=== PATIENT | male | born 1990 | race Caucasian/White ===

== ENCOUNTER 2025-09-13 18:37 | Day surgery (SDC) | payer OTHER, SELFPAY ==
[2025-09-13 19:10] VITALS: BP 142/88; PULSE 70; RESP 20; TEMP 36.7; O2SAT 99
[2025-09-13 20:55] VITALS: BP 118/99; PULSE 81; RESP 14; O2SAT 100
--- NOTE | 2025-09-13 21:01 | ED_ITS ---
HPI - General Adult General Chief complaint: Recheck/Abnormal Lab/Rx Stated complaint: cant swallow Time Seen by Provider: 09/13/25 20:51 History of Present Illness HPI narrative: Patient 35-year-old gentleman presents emergency department with chief complaint of food impaction. Patient reports that around 10 01 today he was eating some any corn dog thought that he chewed up but then it felt as though it was getting stuck in his throat the patient states that he is spitting up his saliva reports that he has been unable to swallow since then patient reports that he had episodes similar to this many years ago where he had a pill stuck in his throat Related Data Allergies Allergy/AdvReac Type Severity Reaction Status Date / Time No Known Allergies Allergy Verified 09/13/25 19:09 Review of Systems 2 Review of Systems: A 10 system review of systems was completed on the patient and is negative except for what is stated in the HPI. Nursing and ancillary documentation was reviewed. Exam 2 Narrative: GENERAL: Well-appearing, well-nourished, and in no acute distress. HEAD: Normocephalic, atraumatic. EYES: PERRLA and EOMI. ENT: Nares clear, no rhinorrhea or epistaxis. Mucous membranes moist. NECK: Supple. CHEST: Clear to auscultation. No respiratory distress. HEART: Regular rate and rhythm. No murmur heard. Normal peripheral pulses. ABDOMEN: Soft, nontender, nondistended, normal active bowel sounds. EXTREMITIES: Normal range of motion. No edema. SKIN: Warm, dry, no rash. NEURO: No focal deficits. Alert and oriented x3. PSYCH: Normal mood and affect. Course Vital Signs Vital signs: Vital Signs Temperature 36.7 C 09/13/25 19:10 Pulse Rate 70 09/13/25 19:10 Respiratory Rate 20 09/13/25 19:10 Blood Pressure 142/88 H 09/13/25 19:10 Pulse Oximetry 99 09/13/25 19:10 Oxygen Delivery Room Air 09/13/25 19:10 Temperature 36.7 C 09/13/25 19:10 Pulse Rate 81 09/13/25 20:55 Respiratory Rate 14 09/13/25 20:55 Blood Pressure 118/99 H 09/13/25 20:55 Pulse Oximetry 100 09/13/25 20:55 Oxygen Delivery Room Air 09/13/25 20:55 MDM MDM Narrative Medical decision making narrative: Patient was treated with glucagon nitroglycerin in the emergency department the patient did feel as impaction might have moved patient was given a trial with a sip of water and spit the water back up the case was discussed with GI Dr. Garay who plans to take the patient to the endoscopy suite Differential Diagnosis Differential Diagnosis: Esophageal food impaction, dysphagia, Lab Data [facility] Lab Attestation statement: I personally reviewed the patient's lab results. 09/13/25 21:25 09/13/25 21:25 Labs: Lab Results 09/13/25 Range/Units 21:25 WBC 12.0 H (4.5-10.0) K/mm3 RBC 5.28 (4.6-6.20) M/mm3 Hgb 16.6 (14.0-18.0) g/dL Hct 45.7 (42.0-52.0) % MCV 86.6 (80-100) fl MCH 31.4 (26-34) pg MCHC 36.3 H (32-36) g/dl RDW 11.9 (11.5-14.5) % Plt Count 221 (150-375) k/mm3 MPV 10.8 H (7.4-10.4) fl Immature Gran % (Auto) 0.6 H (0-0.5) % Neut % (Auto) 69.8 (45.5-73.1) % Lymph % (Auto) 16.0 L (18.3-44.2) % [place] % (Auto) 8.0 (2.6-8.5) % Eos % (Auto) 4.8 H (0-4.4) % Baso % (Auto) 0.8 (0.2-1.2) % Lymph # (Auto) 1.92 (0.9-3.2) K/mm3 [place]s # (Auto) 1.0 H (0.1-0.6) K/mm3 Eos # (Auto) 0.6 H (0-0.3) K/mm3 Baso # (Auto) 0.1 (0.0-0.1) K/mm3 Abs Immat Gran (auto) 0.07 H (0.00-0.031) K/mm3 Absolute Neuts (auto) 8.4 H (1.3-6.7) K/mm3 Absolute Nucleated RBC 0.000 (0.0-0.012) K/mm3 Nucleated RBC % 0.0 (0.0-0.2) % Sodium 136 L (137-145) mmol/L Potassium 3.9 (3.4-5.0) mmol/L Chloride 103 (98-107) mmol/L Carbon Dioxide 25 (22-30) mmol/L Anion Gap 8 (4-12) mmol/L BUN 12 (9-20) mg/dL Creatinine 1.19 (0.7-1.3) mg/dL Estim Creat Clear Calc 92 ml/min Estimated GFR > 60 (59 - ) Glucose 103 (65-110) mg/dL Calcium 9.6 (8.4-10.2) mg/dL Total Bilirubin 1.5 H (0.2-1.3) mg/dL AST 46 (17-59) U/L ALT 78 H (6-50) U/L Alkaline Phosphatase 91 (38-126) U/L Total Protein 8.2 (6.3-8.2) g/dL Albumin 4.9 (3.5-5.1) g/dL Discharge Plan Discharge Clinical Impression: Food impaction of esophagus Patient Disposition: Still a Patient Condition: Stable Patient Language: Trinidadian Follow-up/Referrals: UNKNOWN,DOCTOR [Primary Care Provider]
[2025-09-13] MEDS: GLUCAGON FOR INJ 1 MG VIAL IV PUSH (21:20)
[2025-09-13] MEDS: NITROGLYCERIN SL 0.4 MG TABLET SUBLINGUAL (21:20)
[2025-09-13 21:30] LABS: Hematocrit 45.7 % (42.0-52.0); Hemoglobin 16.6 g/dL (14.0-18.0); Immature Granulocyte Percent A 0.6 % (0-0.5); Lymphocytes Absolute Auto 1.92 K/mm3 (0.9-3.2); Mean Corpuscular HGB Conc 36.3 g/dl (32-36); Mean Corpuscular Hemoglobin 31.4 pg (26-34); Mean Corpuscular Volume 86.6 fl (80-100); Nucleated Red Blood Cells Absolute Auto 0.000 K/mm3 (0.0-0.012); Nucleated Red Blood Cells Perc 0.0 % (0.0-0.2); Platelet Count Result 221 k/mm3 (150-375); Red Blood Count 5.28 M/mm3 (4.6-6.20); White Blood Count 12.0 K/mm3 (4.5-10.0)
[2025-09-13] MEDS: SODIUM CHLORIDE 0.9% IV 1,000 ML 999 ML IV CONT (21:31)
[2025-09-13 21:43] LABS: Alanine Aminotransferase 78 U/L (6-50); Albumin Level 4.9 g/dL (3.5-5.1); Alkaline Phosphatase 91 U/L (38-126); Anion Gap 8 mmol/L (4-12); Aspartate Amino Transferase 46 U/L (17-59); Bilirubin,Total 1.5 mg/dL (0.2-1.3); Blood Urea Nitrogen 12 mg/dL (9-20); Calcium 9.6 mg/dL (8.4-10.2); Carbon Dioxide 25 mmol/L (22-30); Chloride 103 mmol/L (98-107); Estimated CRCL calculation 92 ml/min; Estimated Glomerular Filt Rate > 60; Glucose 103 mg/dL (65-110); Potassium 3.9 mmol/L (3.4-5.0); Sodium 136 mmol/L (137-145); Total Protein 8.2 g/dL (6.3-8.2)
--- OUTSIDE RECORDS SUMMARY | 2025-09-13 22:30 | XMS_ITS | Clinical Summary ---
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
[2025-09-13 22:50] VITALS: BP 137/95; PULSE 82; RESP 18; TEMP 36.3; O2SAT 100
--- NOTE | 2025-09-13 22:50 | WPDANESEPP ---
Anes - Eval Pre Procedure Procedure: Operation Date: 09/13/25 22:30 Proposed Procedures p Esophagogastroduodenoscopy - Mao Matson MD Date/Time: 09/13/25 22:50 Surgeon: Dano Preop Diagnosis: food impaction, dysphagia Pre Op Diagnosis: cant swallow Patient Data Age: 35 Gender: M Height: 1.8 m Weight: 101.7 kg Last Vital Signs Temp 98.1 F 09/13/25 19:10 Pulse 81 09/13/25 20:55 Resp 14 09/13/25 20:55 BP 118/99 H 09/13/25 20:55 Pulse Ox 100 09/13/25 20:55 O2 Del Method Room Air 09/13/25 20:55 Allergies Allergy/AdvReac Type Severity Reaction Status Date / Time No Known Allergies Allergy Verified 09/13/25 22:53 Laboratory Tests 09/13/25 21:25 WBC 12.0 H K/mm3 (4.5-10.0) RBC 5.28 M/mm3 (4.6-6.20) Hgb 16.6 g/dL (14.0-18.0) Hct 45.7 % (42.0-52.0) MCV 86.6 fl (80-100) MCH 31.4 pg (26-34) MCHC 36.3 H g/dl (32-36) RDW 11.9 % (11.5-14.5) Plt Count 221 k/mm3 (150-375) MPV 10.8 H fl (7.4-10.4) Immature Gran % (Auto) 0.6 H % (0-0.5) Neut % (Auto) 69.8 % (45.5-73.1) Lymph % (Auto) 16.0 L % (18.3-44.2) [place] % (Auto) 8.0 % (2.6-8.5) Eos % (Auto) 4.8 H % (0-4.4) Baso % (Auto) 0.8 % (0.2-1.2) Lymph # (Auto) 1.92 K/mm3 (0.9-3.2) [place] # (Auto) 1.0 H K/mm3 (0.1-0.6) Eos # (Auto) 0.6 H K/mm3 (0-0.3) Baso # (Auto) 0.1 K/mm3 (0.0-0.1) Abs Immat Gran (auto) 0.07 H K/mm3 (0.00-0.031) Absolute Neuts (auto) 8.4 H K/mm3 (1.3-6.7) Absolute Nucleated RBC 0.000 K/mm3 (0.0-0.012) Nucleated RBC % 0.0 % (0.0-0.2) Sodium 136 L mmol/L (137-145) Potassium 3.9 mmol/L (3.4-5.0) Chloride 103 mmol/L (98-107) Carbon Dioxide 25 mmol/L (22-30) Anion Gap 8 mmol/L (4-12) BUN 12 mg/dL (9-20) Creatinine 1.19 mg/dL (0.7-1.3) Estim Creat Clear Calc 92 ml/min Estimated GFR > 60 (59 - ) Glucose 103 mg/dL (65-110) Calcium 9.6 mg/dL (8.4-10.2) Total Bilirubin 1.5 H mg/dL (0.2-1.3) AST 46 U/L (17-59) ALT 78 H U/L (6-50) Alkaline Phosphatase 91 U/L (38-126) Total Protein 8.2 g/dL (6.3-8.2) Albumin 4.9 g/dL (3.5-5.1) Patient hx anesthesia problems: none Family hx anesthesia problems: none Results Review: All pre-operative results and documents have been reviewed as part of the pre-operative evaluation. [facility] Past Medical History Medical History (Updated 09/13/25 @ 23:04 by Monique Blancas CRNA) Esophageal obstruction due to food impaction Marijuana smoker 3-4 times weekly Chronic sinusitis Social History Social History (Updated 09/13/25 @ 23:03 by Monique Blancas CRNA) Alcohol intake: current Drinks per week: 15 Alcohol use details: typically beers or rum & coke Substance use: current Substance use type: marijuana Other substance usage details: 3-4 times weekly Last use: 09/12/25 Exam Day of Procedure 09/13/25 22:50 Patient weight: obese (bmi 31) Heart: regular rate and rhythm Lungs: clear to auscultation Airway: Mallampati scale class 1 Neurological: alert and oriented
--- NOTE | 2025-09-13 23:02 | P.HP_ITS ---
H&P: HPI History of Present Illness Date/Time: 09/13/25 23:02 Chief Complaint: Food bolus impaction Narrative: Patient went to the emergency room after eating food and felt his esophagus got obstructed, to the point that he cannot even swallow his own saliva. He endorses occasional low-grade dysphagia with solid foods for the past 2 years, being careful cutting food in small pieces and chewing many times. This is the 1st time the patient has a food bolus. Review of Systems Constitutional: Constitutional: Reports as per HPI and Reports no additional constitutional complaints ENT: Denies neck mass, Denies neck pain and Denies odynophagia Cardiovascular: Cardiovascular: Reports no additional cardiovascular complaints Respiratory: Respiratory: Reports no additional respiratory complaints Gastrointestinal: Gastrointestinal: Reports as per HPI [facility] Past Medical History Medical History (Updated 09/13/25 @ 23:04 by Monique Blancas CRNA) Esophageal obstruction due to food impaction Marijuana smoker 3-4 times weekly Chronic sinusitis Social History Social History Alcohol intake: current Drinks per week: 15 Alcohol use details: typically beers or rum & coke Substance use: current Substance use type: marijuana Other substance usage details: 3-4 times weekly Last use: 09/12/25 Meds Home Medications and Allergies Allergies Allergy/AdvReac Type Severity Reaction Status Date / Time No Known Allergies Allergy Verified 09/13/25 22:53 Vital Signs Vital Signs - 24 hr 09/13/25 19:10 09/13/25 20:55 09/13/25 22:50 Temperature 98.1 F 97.3 F L Pulse Rate 70 81 82 Respiratory Rate 20 14 18 Blood Pressure 142/88 H 118/99 H 137/95 H Pulse Oximetry 99 100 100 Oxygen Delivery Room Air Room Air Room Air Exam Const: General: cooperative and healthy appearing Nutritional Appearance: average body habitus HENMT: Head: normal to inspection Neck: Neck: normal visual inspection and full ROM Resp: Auscultation: clear to auscultation bilaterally Results Labs Labs: Short CBC 09/13/25 Range/Units 21:25 WBC 12.0 H (4.5-10.0) K/mm3 Hgb 16.6 (14.0-18.0) g/dL Hct 45.7 (42.0-52.0) % Plt Count 221 (150-375) k/mm3 BMP 09/13/25 21:25 Sodium 136 L Potassium 3.9 Chloride 103 Carbon Dioxide 25 BUN 12 Creatinine 1.19 Glucose 103 Calcium 9.6 Liver Function 09/13/25 Range/Units 21:25 Total Bilirubin 1.5 H (0.2-1.3) mg/dL AST 46 (17-59) U/L ALT 78 H (6-50) U/L Alkaline Phosphatase 91 (38-126) U/L Albumin 4.9 (3.5-5.1) g/dL Assessment and Plan Assessment and plan (1) Food impaction of esophagus: Code(s): T18.128A - Food in esophagus causing other injury, initial encounter; [id number].F3XA - Food entering into or through a natural orifice, initial encounter Status: Acute Assessment and Plan: Will perform EGD and food bolus extraction under general anesthesia. Prior Studies I have reviewed the following patient records and this information was taken into consideration when formulating the assessment and plan.: previous labs, previous ER visits, previous hospitalizations and previous clinic visits
--- NOTE | 2025-09-13 23:05 | P.PNAN_ITS ---
Anes - Eval Final PreProcedure Day of Procedure 09/13/25 23:05 Patient weight: obese (BMI 31) Heart: regular rate and rhythm Lungs: clear to auscultation Airway: Mallampati scale class 1 Neurological: alert and oriented Last oral intake: >/= 8 hours (solids 1230, fluids attempted in ER) ASA classification: II Emergent: yes Anesthetic plan: proceed Anesthesia type and monitoring: general ETT and standard monitoring Results Review: All pre-operative results and documents have been reviewed as part of the pre- operative evaluation. Informed Consent: The patient's anesthetic plan and its attendant risks and benefits were discussed with the patient/family/POA. Questions were solicited and answers provided to the satisfaction of the patient/family/POA.
[2025-09-13] MEDS: LACTATED RINGERS 1,000 ML 150 ML IV CONT (23:28)
--- NOTE | 2025-09-13 23:38 | S_PTH ---
PATIENT: Chad Contreras LOC: [facility] U#:[id number] AGE/SX: 35/M ROOM: RE09/13/[address]: Mao Matson MD : [id number] BED: DIS: 09/13/2025 SPEC #: [id number] RECD: 09/16/25 08:07 STATUS: APOLINAR REQ #: [id number] VENUS: 09/13/25 23:[address]: Mao Matson DEPT: [facility] Surgical RECD BY: [place] ENTERED: 09/16/25 08:07 SP TYPE: Surgical OTHR DR: Andrew Yoon MD UNKNOWN,DOCTOR Tissues: A - Esophageal Biopsy Procedures: Hematoxylin and Eosin Stain Gross and Microscopic Level 4
[2025-09-13 23:50] VITALS: BP 106/74; PULSE 96; RESP 23; TEMP 36.6; O2SAT 100
[2025-09-14] VITALS: BP 125/89; PULSE 99; RESP 16; O2SAT 100
[2025-09-14 00:10] VITALS: BP 131/75; PULSE 89; RESP 20; O2SAT 100
[2025-09-14 00:20] VITALS: BP 132/80; PULSE 89; RESP 20; O2SAT 100
[2025-09-14 00:30] VITALS: BP 135/81; PULSE 74; RESP 24; O2SAT 100
[2025-09-14 00:40] VITALS: BP 124/64; PULSE 72; RESP 15; O2SAT 100
--- OUTSIDE RECORDS SUMMARY | 2025-09-18 16:36 | XMS_ITS | Clinical Summary ---
Author Organization 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
== END 2025-09-13 23:55 | disposition home or self-care (01) ==
LOC: ANHED 23:52 → ANHSURGERY 09-18 14:01
PROVIDERS: Emergency Provider Emergency Medicine; Visit Provider Internal Medicine Gastroenterology
PROC: 0DJ08ZZ Inspection of Upper Intestinal Tract, Via Natural or Artificial Opening Endoscopic (ICD-10-PCS; CPT 43247; principal; 2025-09-13 22:30)
DX: T18.128A Food in esophagus causing other injury, initial encounter (principal); K21.00 Gastro-esophageal reflux disease with esophagitis, without bleeding; W44.F3XA Food entering into or through a natural orifice, initial encounter; J32.9 Chronic sinusitis, unspecified; F12.90 Cannabis use, unspecified, uncomplicated; E66.9 Obesity, unspecified; Z68.31 Body mass index [BMI] 31.0-31.9, adult
CPT/HCPCS: 43247; 43239; 36415; 80053; 85025; 88305; 96374; 99285; A9270; J0330; J1610; J2003; J2704; J7030; J7120